=== PATIENT | female | born 1965 ===

== ENCOUNTER 2018-09-18 22:39 | Emergency (ER) | payer OTHER ==
[2018-09-18 23:01] VITALS: RESP 16
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
[2018-09-19 07:52] VITALS: BP 121/70; PULSE 66; TEMP 98.3
--- NOTE | 2018-09-19 10:45 | RAD ---
Date of service: 09/19/2018 PROCEDURE: Right ankle radiographs. HISTORY: joint pain COMPARISON: None. FINDINGS: BONES: Normal. No fracture. JOINTS: Normal. No dislocation. SOFT TISSUES: Normal. OTHER FINDINGS: Heel spur. IMPRESSION: Normal right wrist radiographs.
--- NOTE | 2018-09-19 10:46 | RAD ---
Date of service: 09/19/2018 HISTORY: r/o fracture COMPARISON: None available. FINDINGS: BONES: Normal. No fracture. JOINTS: Normal. No osteoarthritis. SOFT TISSUE: Normal. OTHER FINDINGS: None . IMPRESSION: Normal Bone Xray.
--- NOTE | 2018-09-19 12:38 | RAD ---
Date of service: 09/19/2018 PROCEDURE: Right Foot Radiographs. HISTORY: joint pain COMPARISON: None. FINDINGS: BONES: Normal. No fracture. JOINTS: Normal. SOFT TISSUES: Normal. OTHER FINDINGS: Plantar heel spur. IMPRESSION: No fracture.
[2018-09-20 06:13] VITALS: O2SAT 96
== END 2018-09-19 07:45 | disposition home or self-care (01) ==
LOC: H.ER 22:39
DX: S82.54XA Nondisplaced fracture of medial malleolus of right tibia, initial encounter for closed fracture (principal); V03.10XA Pedestrian on foot injured in collision with car, pick-up truck or van in traffic accident, initial encounter; Y92.410 Unspecified street and highway as the place of occurrence of the external cause
CPT/HCPCS: 29515; 73590; 73610; 73630; 96372; 99285; J1885